=== PATIENT | female | born 1980 | race Caucasian/White ===

== ENCOUNTER 2019-01-23 05:08 | Inpatient (IN) | payer BC ==
--- NOTE | 2019-01-23 07:05 | History and Physical Report ---
History of Present Illness Date of examination: 01/23/19 Date of admission: 01/23/19 Chief complaint: contractions, vaginal bleeding History of present illness: 38yo G 2 P 0 0 1 0 at 38 weeks 1 day here with c/o contractions and vaginal bleeding. She reports +FMs bur denies LOF. She is a [employer] patient who initiated care at 9 weeks gestation. Her course was complicated by vit D deficiency (on supplementation), anemia (on iron therapy), AMA and GDM (on Glyburide). Her care was co-managed with JOSE. LABS: O+, Antibody Screen neg, Pap Smear normal, RI, VDRL NR, HBsAg neg, HIV neg, Varicella NI, Diabetes Screen 182, GTT 98/235/194/93. Past History Past Medical History: no pertinent history Past Surgical History: no surgical history HOTEL SERVER History: other (spontaneous ) Family/Genetic History: none Social history: , lives with family, full code. denies: smoking, alcohol abuse, prescription drug abuse, IV drug use - Obstetrical History Expected Date of Delivery: 02/05/19 Actual Gestation: 38 Week(s) 1 Day(s) : 2 Para: 0 Hx # Term Pregnancies: 0 Number of Pregnancies: 0 Spontaneous Abortions: 1 Induced : 0 Number of Living Children: 0 Review of Systems All systems: negative - Vital Signs Vital signs: Vital Signs Pulse Pulse Ox 85 96 01/23/19 05:28 01/23/19 05:28 Temp Pulse Resp BP Pulse Ox 98.8 F 94 H 18 107/71 96 01/23/19 06:06 01/23/19 06:53 01/23/19 06:06 01/23/19 06:49 01/23/19 06:53 - Obstetrical FHR: auscultation normal, category 1 FHR comments: baseline 150, moderate variability, 15x15 accels, no decels Uterine Contraction Monitor Mode: External Cervical Dilatation: 3.5 Cervical Effacement Percentage: 70 station: -1 Uterine Contraction Pattern: Regular Results All other labs normal. Assessment and Plan - Patient Problems (1) 38 weeks gestation of Current Visit: Yes Status: Acute (2) Active labor at term Current Visit: Yes Status: Acute Plan to address problem: Admit to L&D with routine labor orders Start oxytocin for labor augmentation Anticipate vaginal delivery (3) Gestational diabetes mellitus, class A2 Current Visit: Yes Status: Acute Plan to address problem: Routine blood glucose check (4) Advanced maternal age (AMA) in Current Visit: Yes Status: Acute
[2019-01-23] MEDS ORDERED: XYLOCAINE 2% INFILTRATI ONE ×2 (07:20→17:20)
[2019-01-23] MEDS ORDERED: BRETHINE IVP PRN (07:20)
[2019-01-23] MEDS ORDERED: STADOL IV PRN (07:20)
[2019-01-23] MEDS ORDERED: SUBLIMAZE IV PRN (07:20)
[2019-01-23] MEDS ORDERED: BRETHINE SUB-Q PRN (07:20)
[2019-01-23] MEDS ORDERED: LACTATED RINGERS 1,000 ML IV SCH (08:00)
[2019-01-23] MEDS ORDERED: PITOCin/NS 30 UNIT/500ML 30 UNITS/500 ML BAG IV SCH (08:00)
[2019-01-23] MEDS ORDERED: PITOCin/NS 20 UNIT/1000ML DRIP 20 UNITS/1,000 ML BAG IV SCH (08:00)
[2019-01-23 08:13] LABS: Hemoglobin 11.8 gm/dl (10.1-14.3); Mean Corpuscular HGB Conc 32 % (30-34); Mean Corpuscular Volume 68 fl (79-97); Platelet Count 179 K/mm3 (140-440); Red Cell Distribution Width 16.5 % (13.2-15.2)
--- NOTE | 2019-01-23 10:36 | Progress Note ---
Assessment and Plan - Patient Problems (1) 38 weeks gestation of Current Visit: Yes Status: Acute Plan to address problem: Continue routine orders Continue Pitocin augmentation as tolerated Pain medications as desired Anticipate (2) Advanced maternal age (AMA) in Current Visit: Yes Status: Acute (3) Gestational diabetes mellitus, class A2 Current Visit: Yes Status: Acute Plan to address problem: Monitor blood glucose levels per protocol Subjective - Subjective Date of service: 01/23/19 Principal diagnosis: 38 wk gestation; early labor Interval history: See admission H & P Patient reports: vaginal bleeding, movement normal, contractions, no new complaints Objective - Vital Signs Vital Signs: Vital Signs - 12hr 01/23/19 01/23/19 01/23/19 05:28 05:32 05:33 Temperature Pulse Rate 85 83 89 Respiratory Rate Blood Pressure 120/80 O2 Sat by Pulse 96 98 Oximetry 01/23/19 01/23/19 01/23/19 05:38 05:43 05:46 Temperature Pulse Rate 94 H 90 86 Respiratory Rate Blood Pressure 117/77 O2 Sat by Pulse 98 98 Oximetry 01/23/19 01/23/19 01/23/19 05:48 05:53 05:58 Temperature Pulse Rate 90 87 91 H Respiratory Rate Blood Pressure O2 Sat by Pulse 97 98 97 Oximetry 01/23/19 01/23/19 01/23/19 06:03 06:06 06:08 Temperature 98.8 F Pulse Rate 87 87 Respiratory 18 Rate Blood Pressure O2 Sat by Pulse 97 96 Oximetry 01/23/19 01/23/19 01/23/19 06:13 06:18 06:23 Temperature Pulse Rate 90 94 H 96 H Respiratory Rate Blood Pressure O2 Sat by Pulse 95 96 97 Oximetry 01/23/19 01/23/19 01/23/19 06:28 06:33 06:38 Temperature Pulse Rate 93 H 93 H 93 H Respiratory Rate Blood Pressure O2 Sat by Pulse 97 97 96 Oximetry 01/23/19 01/23/19 01/23/19 06:43 06:48 06:49 Temperature Pulse Rate 90 88 94 H Respiratory Rate Blood Pressure 107/71 O2 Sat by Pulse 96 96 Oximetry 01/23/19 01/23/19 01/23/19 06:53 06:58 07:03 Temperature Pulse Rate 94 H 82 91 H Respiratory Rate Blood Pressure O2 Sat by Pulse 96 97 96 Oximetry 01/23/19 01/23/19 01/23/19 07:08 07:13 07:18 Temperature Pulse Rate 96 H 92 H 87 Respiratory Rate Blood Pressure O2 Sat by Pulse 96 96 95 Oximetry 01/23/19 07:20 Temperature Pulse Rate 89 Respiratory Rate Blood Pressure O2 Sat by Pulse 94 Oximetry - Exam Breasts: deferred Cardiovascular: Regular rate Lungs: Normal air movement Abdomen: Present: other (gravid) Uterus: Present: other (S=D) FHR: category 1 Uterine Contraction Monitor Mode: External Uterine Contraction Pattern: Irregular Uterine Tone Measurement Phase: Resting Uterine Contraction Intensity: Mild Extremities: normal Deep Tendon Reflex Grade: Normal +2 - Labs Labs: Abnormal Labs 01/23/19 07:50 RBC 5.40 H MCV 68 L MCH 22 L RDW 16.5 H Laboratory Results - last 24 hr 01/23/19 01/23/19 01/23/19 07:01 07:50 07:50 WBC 9.1 RBC 5.40 H Hgb 11.8 Hct 37.0 MCV 68 L MCH 22 L MCHC 32 RDW 16.5 H Plt Count 179 POC Glucose 77 Blood Type O POSITIVE Antibody Screen Negative
--- NOTE | 2019-01-23 16:09 | Progress Note ---
Assessment and Plan - Patient Problems (1) 38 weeks gestation of Current Visit: Yes Status: Acute Plan to address problem: Continue routine orders Continue Pitocin augmentation as tolerated AROM - clear fluids Pain medications as desired Anticipate (2) Advanced maternal age (AMA) in Current Visit: Yes Status: Acute (3) Gestational diabetes mellitus, class A2 Current Visit: Yes Status: Acute Subjective - Subjective Date of service: 01/23/19 (576) Principal diagnosis: 38 wk gestation; early labor Interval history: See admission H & P Patient reports: vaginal bleeding, movement normal, contractions, no new complaints Objective - Vital Signs Vital Signs: Vital Signs - 12hr 01/23/19 01/23/19 01/23/19 05:28 05:32 05:33 Temperature Pulse Rate 85 83 89 Respiratory Rate Blood Pressure 120/80 O2 Sat by Pulse 96 98 Oximetry 01/23/19 01/23/19 01/23/19 05:38 05:43 05:46 Temperature Pulse Rate 94 H 90 86 Respiratory Rate Blood Pressure 117/77 O2 Sat by Pulse 98 98 Oximetry 01/23/19 01/23/19 01/23/19 05:48 05:53 05:58 Temperature Pulse Rate 90 87 91 H Respiratory Rate Blood Pressure O2 Sat by Pulse 97 98 97 Oximetry 01/23/19 01/23/19 01/23/19 06:03 06:06 06:08 Temperature 98.8 F Pulse Rate 87 87 Respiratory 18 Rate Blood Pressure O2 Sat by Pulse 97 96 Oximetry 01/23/19 01/23/19 01/23/19 06:13 06:18 06:23 Temperature Pulse Rate 90 94 H 96 H Respiratory Rate Blood Pressure O2 Sat by Pulse 95 96 97 Oximetry 01/23/19 01/23/19 01/23/19 06:28 06:33 06:38 Temperature Pulse Rate 93 H 93 H 93 H Respiratory Rate Blood Pressure O2 Sat by Pulse 97 97 96 Oximetry 01/23/19 01/23/19 01/23/19 06:43 06:48 06:49 Temperature Pulse Rate 90 88 94 H Respiratory Rate Blood Pressure 107/71 O2 Sat by Pulse 96 96 Oximetry 01/23/19 01/23/19 01/23/19 06:53 06:58 07:03 Temperature Pulse Rate 94 H 82 91 H Respiratory Rate Blood Pressure O2 Sat by Pulse 96 97 96 Oximetry 01/23/19 01/23/19 01/23/19 07:08 07:13 07:18 Temperature Pulse Rate 96 H 92 H 87 Respiratory Rate Blood Pressure O2 Sat by Pulse 96 96 95 Oximetry 01/23/19 01/23/19 01/23/19 07:20 11:36 11:48 Temperature 97.9 F Pulse Rate 89 75 Respiratory 16 Rate Blood Pressure 119/74 O2 Sat by Pulse 94 Oximetry 01/23/19 12:00 Temperature Pulse Rate 74 Respiratory Rate Blood Pressure 115/69 O2 Sat by Pulse Oximetry - Exam Breasts: deferred Cardiovascular: Regular rate Lungs: Normal air movement FHR: category 1 Uterine Contraction Monitor Mode: External (with early decelerations noted) Cervical Dilatation: 9 Cervical Effacement Percentage: 90 station: +1 Uterine Contraction Frequency (min): 2 Uterine Contraction Pattern: Regular Uterine Tone Measurement Phase: Resting Uterine Contraction Intensity: Strong/Firm Extremities: normal Deep Tendon Reflex Grade: Normal +2 - Labs Labs: Abnormal Labs 01/23/19 01/23/19 07:50 10:50 RBC 5.40 H MCV 68 L MCH 22 L RDW 16.5 H POC Glucose 67 L Laboratory Results - last 24 hr 01/23/19 01/23/19 01/23/19 07:01 07:50 07:50 WBC 9.1 RBC 5.40 H Hgb 11.8 Hct 37.0 MCV 68 L MCH 22 L MCHC 32 RDW 16.5 H Plt Count 179 POC Glucose 77 RPR Nonreactive Blood Type Antibody Screen 01/23/19 01/23/19 07:50 10:50 WBC RBC Hgb Hct MCV MCH MCHC RDW Plt Count POC Glucose 67 L RPR Blood Type O POSITIVE Antibody Screen Negative
[2019-01-23] MEDS ORDERED: MINERAL OIL ONE (16:52)
--- NOTE | 2019-01-23 18:56 | Event Note ---
Date: 01/23/19 I was called by electric tool repairer Saige to assist in repairing a third degree perineal laceration. The patient is a 38 year old who just delivered via normal spontaneous vaginal delivery a live infant. She sustained a 3rd degree laceration and vaginal wall laceration. Lidocaine 1% was used. I used 2.0 vicryl sutures to repair those laceration with good hemostasis. Rectal sphincter was then checked and the tone was normal. She tolerated the procedure well. She remains stable.
[2019-01-23] MEDS ORDERED: BENADRYL PO PRN (19:20)
[2019-01-23] MEDS ORDERED: TUCKS PAD TP PRN (19:20)
[2019-01-23] MEDS ORDERED: LANSINOH TP PRN (19:20)
[2019-01-23] MEDS ORDERED: NORCO 5/325 PO PRN (19:20)
[2019-01-23] MEDS ORDERED: DULCOLAX PR PRN (19:20)
[2019-01-23] MEDS ORDERED: PHENERGAN PO PRN (19:20)
[2019-01-23] MEDS ORDERED: ZOFRAN IV PRN (19:20)
[2019-01-23] MEDS ORDERED: MILK OF MAGNESIA PO PRN (19:20)
--- NOTE | 2019-01-23 19:50 | Procedure Note ---
OB Delivery Note - Delivery Date of Delivery: 01/23/19 (4293) Surgeon: CARLOS AKERS (CNM) Estimated blood loss: other (650 mls) - Vaginal Delivery presentation: vertex Delivery position: OA (direct) Intrapartum events: none Delivery induction: none Delivery augmentation: rupture of membranes, pitocin Delivery monitor: external FHT Route of delivery: Delivery placenta: spontaneous Delivery cord: 3 umbilical vessels Episiotomy: none Delivery laceration: 3rd degree (Repaired by Dr. Francisco) Delivery repair: vicryl (2.0) Anesthesia: local (Lidocaine) Delivery comments: of viable, crying male , placed immediately to maternal abdomen. Cord double clamped and cut by FOB after cessation of pulsation. Placenta spontaneously delivered, [place], disposed per hospital policy. Dr. Francisco called to room for assessment and repair of third degree perineal laceration. Baby and mother stable. - Infant A at 1 minute: 8 at 5 minutes: 9 Gender: Male (Weight: 3245 gms (7 lbs 2 ozs), 18.5 inches)
[2019-01-23] MEDS ORDERED: SODIUM CHLORIDE FLUSH SYRINGE 10 ML IV SCH (20:00)
[2019-01-23] MEDS ORDERED: DERMOPLAST TP PRN (21:59)
[2019-01-23] MEDS ORDERED: MINERAL OIL PO PRN (22:00)
[2019-01-23] MEDS: IBUPROFEN PO SCH (22:01)
[2019-01-23] MEDS: FEOSOL PO SCH (22:02)
[2019-01-24] MEDS: IBUPROFEN PO SCH ×3 (03:51→12:40)
[2019-01-24 06:47] LABS: Hematocrit 27.4 % (30.3-42.9); Hemoglobin 8.7 gm/dl (10.1-14.3)
[2019-01-24] MEDS: PRENATAL VITAMIN PO SCH (09:50)
--- NOTE | 2019-01-24 10:12 | Progress Note ---
Assessment and Plan A: PP Day #1 Asymptomatic Anemia P: Follow Routine Orders Infed 100mg IM x 1 dose Continue FeSO4 PO Subjective - Subjective Date of service: 01/24/19 Principal diagnosis: 38 wk gestation; early labor Patient reports: appetite normal, voiding normally, pain well controlled, flatus, ambulating normally : doing well, bottle feeding Objective - Vital Signs Latest vital signs: Vital Signs Temp Pulse Resp BP BP Pulse Ox 01/24/19 04:00 98.6 F 72 16 101/72 01/23/19 20:20 98.6 F 92 H 16 104/64 99 01/23/19 19:09 100 H 107/69 01/23/19 18:54 98 H 111/68 01/23/19 18:50 113 H 118/73 01/23/19 18:39 96 H 114/71 01/23/19 18:35 16 01/23/19 18:24 99 H 123/76 01/23/19 18:09 90 124/72 01/23/19 17:54 97 H 113/71 01/23/19 17:39 89 110/70 01/23/19 17:35 16 01/23/19 17:23 89 122/65 01/23/19 16:53 88 118/63 01/23/19 16:45 98.1 F 16 01/23/19 14:48 16 01/23/19 12:00 74 115/69 01/23/19 11:48 97.9 F 16 01/23/19 11:36 75 119/74 Intake and Output 01/23/19 01/24/19 01/24/19 22:59 06:59 14:59 Output Total 500 Balance -500 Output: Urine 500 Void 500 Other: Total, Output Amount 500 # Voids Void 2 Estimated Blood Loss 250 - Exam Breasts: Present: normal Cardiovascular: Present: Regular rate Lungs: Present: Clear to auscultation, Normal air movement Abdomen: Present: normal appearance, soft, normal bowel sounds Uterus: Present: normal, firm, fundal height below umbilicus Extremities: Present: normal - Labs Labs: Abnormal lab results 01/23/19 01/23/19 01/24/19 Range/Units 10:50 18:33 06:29 Hgb 8.7 L D (10.1-14.3) gm/dl Hct 27.4 L D (30.3-42.9) % POC Glucose 67 L 117 H (70-105)
[2019-01-24] MEDS: FEOSOL PO SCH ×2 (10:16→21:56)
[2019-01-24] MEDS ORDERED: INFED IM NR (11:00)
[2019-01-25] MEDS: IBUPROFEN PO SCH ×3 (01:35→10:40)
[2019-01-25 09:56] VITALS: BP 99/72
[2019-01-25] MEDS: FEOSOL PO SCH (10:41)
[2019-01-25] MEDS: PRENATAL VITAMIN PO SCH (10:41)
--- NOTE | 2019-01-25 10:43 | Progress Note ---
Assessment and Plan A: PP Day #2 s/p 3rd degree laceration well approximated Asymptomatic Anemia Bottle feeding Stable P: Routine Orders Continue FeSO4 PO Discharge home today Subjective - Subjective Date of service: 01/25/19 Principal diagnosis: PPD#2 s/p 01/23; 3rd degree lac Patient reports: appetite normal, voiding normally, pain well controlled, flatus, ambulating normally, no bowel movement : doing well, bottle feeding Objective - Vital Signs Latest vital signs: Vital Signs Temp Pulse Resp BP Pulse Ox 01/25/19 08:02 98.6 F 111 H 18 99/72 98 01/25/19 01:27 98.5 F 102 H 18 110/70 96 01/24/19 16:49 97.6 F 104 H 16 107/73 97 01/24/19 13:15 98.2 F 110 H 16 113/69 96 Intake and Output 01/24/19 01/25/19 01/25/19 23:59 07:59 15:59 Intake Total 600 Balance 600 Intake: Oral 240 Intake, Free Water 360 Other: Total, Intake Amount 240 # Voids Void 1 - Exam Breasts: Present: normal Cardiovascular: Present: Regular rate, Normal S1, Normal S2, No murmurs Lungs: Present: Clear to auscultation, Normal air movement Abdomen: Present: normal appearance, soft, normal bowel sounds. Absent: distention Vulva: both: laceration/episiotomy (Well approximated; Using dermoblast and tucks) Uterus: Present: firm, fundal height at umbilicus Extremities: Present: normal Deep Tendon Reflex Grade: Normal +2
--- NOTE | 2019-01-25 10:48 | Discharge Summary ---
Providers - Providers Date of Admission: 01/23/19 07:42 Date of discharge: 01/25/19 Attending physician: NAVEED IRBY MD 01/23/19 19:26 Consult to Supervisor Fusing Room [CONS] Routine Reason For Exam: assistance with , SNS Primary care physician: NAVEED IRBY MD Hospitalization Reason for admission: active labor, IUP at term Delivery: Procedure details: See delivery notes Episiotomy: none Laceration: 3rd degree (well approximated) Other procedures: none complications: none Discharge diagnosis: IUP at term delivered [place] baby: male Condition at discharge: Good Disposition: DC-01 TO HOME OR SELFCARE Plan - Provider Discharge Summary Activity: routine, no sex for 6 weeks, no heavy lifting 4 weeks, no strenuous exercise Diet: routine Instructions: routine Additional instructions: [] Smoking cessation referral if applicable(refer to patient education folder for contact #) [] Refer to [facility] Booklet Call your doctor immediately for: * Fever > 100.5 * Heavy vaginal bleeding ( >1 pad per hour) * Severe persistent headache * Shortness of breath * Reddened, hot, painful area to leg or breast * Drainage or odor from incision. * Keep incision clean and dry at all times and follow doctor's instructions regarding bathing/showering Continue iron supplements Take stool softner as needed to prevent constipation - Follow up plan Follow up: USHA GOODRICH MD [Staff Physician] - 7 Days
== END 2019-01-25 15:29 | disposition home or self-care (01) | DRG 806 ==
LOC: TRG 05:08 → LD 07:42 → OB 19:37
PROVIDERS: ADMIT Obstetrics & Gynecology; ATTEND Obstetrics & Gynecology
PROC: 10E0XZZ Delivery of Products of Conception, External Approach (ICD-10-PCS; principal; 2019-01-23)
PROC: 0KQM0ZZ Repair Perineum Muscle, Open Approach (ICD-10-PCS; 2019-01-23)
DX: O24.425 Gestational diabetes mellitus in childbirth, controlled by oral hypoglycemic drugs (principal); O70.20 Third degree perineal laceration during delivery, unspecified; Z37.0 Single live birth; Z3A.38 38 weeks gestation of pregnancy; O76 Abnormality in fetal heart rate and rhythm complicating labor and delivery; O99.03 Anemia complicating the puerperium
CPT/HCPCS: 36415; 82962; 85014; 85018; 85027; 86592; 86850; 86900; 86901; G0378; J0595; J1750; J2590; J3010; J7120